=== PATIENT | female | born 2000 | race Caucasian/White ===

== ENCOUNTER 2025-03-10 18:41 | Emergency (ER) | payer BC, SELFPAY ==
--- OUTSIDE RECORDS SUMMARY | 2025-01-24 18:45 | XMS_ITS | Encounter Summary ---
Author Organization [facility] Address [address] [place] [id number] Care Team Providers Care Photoengraver Name Role Phone Amber Ryan MD Primary Care Provider Reason for Visit * Reason Comments Pain Encounter Details Date Type Department Care Team (Late st Contact Info) Description 01/24/2025 7:45 PM EDT Office Visit [facility] [place] [address] Melony Ramirez, PA-C [address] [place] [address] Acute pain of right shoulder (Primary Dx); Strain of right shoulder, initial encounter; Strain of right trapezius muscle, subsequent encounter Social History Tobacco Use Types Packs/Day Years Used Date Smoking Tobacco: Never Smokeless Tobacco: Never Alcohol Use Standard Drinks/Week Comments Never 0 (1 standard drink = 0.6 oz pur e alcohol) PHQ-2 Answer Date Recorded PHQ-2 Total Score 1 11/07/2024 Sexually Active Control Partners Comments Never not sexuallly a ctive yet Comments No Sex and Gender Information Value Date Recorded Sex Assigned at Not on file Legal Sex Female 4:55 PM EDT Gender Identity Not on file Sexual Orientation Not on file documented as of this encounter Functional Status * Is the person deaf or does he/she have serious difficulty hearing? Answer Date of Assessment Author No 02/08/2022 10:58 AM EDT Jumana Whitlock LPN * Is the person blind or does he/she have serious difficulty seeing even when wearing glasses? Answer Date of Assessment Author No 02/08/2022 10:58 AM EDT Jumana Whitlock LPN * Does this person have serious difficulty walking or climbing stairs? Answer Date of Assessment Author No 02/08/2022 10:58 AM EDT Jumana Whitlock LPN * Does this person have difficulty dressing or bathing? Answer Date of Assessment Author No 02/08/2022 10:58 AM EDT Jumana Whitlock LPN * Because of a physical, mental or emotional condition, does this person have difficulty doing errands alone such as visiting a doctor's office or shopping? Answer Date of Assessment Author No 02/08/2022 10:58 AM EDT Jumana Whitlock LPN documented as of this encounter Mental Status * Because of a physical, mental or emotional condition, does this person have serious difficulty concentrating, remembering or making decisions? Answer Entry Date Author No 02/08/2022 10:58 AM EDT Jumana Whitlock LPN documented in this encounter Progress Notes * Melony Ramirez PA-C - 01/24/2025 7:45 PM EDT Images from the original note were not included. Ravi Guillen 2000 Chief Complaint Patient presents with Right Shoulder - Pain [facility] HPI: Patient is a 24-year-old female who presents for evaluation of right shoulder pain. 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 She describedscrew shooting. She seems to be with 1 central point radiating out. Describes it as aching and Throbbing She has pain at rest but also has pain which is worsened when she turns her head to the left. ROS: all other systems reviewed and negative except what is noted in HPI Physical Examination: General: Well-appearing with appropriate affect. No acute distress. Skin: Warm and dry. Color natural. Neurologic: Alert and oriented to person, place and time. Normal neurosensory responce to touch. Pulmonary: Chest expansion appears symmetrical and unlabored. Cardiovascular: No signs of peripheral edema. Lymphatic: No signs of lymphangitis. Gait: Nonantalgic Musculoskeletal: Right shoulder: No deformity. Skin intact. There is tenderness with palp patient at the posterior shoulder along the scapular border upper trapezius. Some tenderness down through the rhomboid musculature as well Pain exacerbated with range of motion of the shoulder though no specific pain with that in the shoulder joint. Negative drop arm. Negative Tristen. Good range of motion just limited on internal rotation. Neurovascular status intact. Impression: Right shoulder/trapezius strain Plan: X-rays of the shoulder obtained this evening are negative. Findings consistent with trapezius muscle strain. Recommend rest ice and [id number] analgesics. Will give referral to shoulder specialist for follow-up. Recommend light duty at work no lift push pull carry more than 5 pounds. X-Ray: Three-view x-ray of the right shoulder shows a congruent joint. No acute fractures. No significant degenerative changes. The supervising/collaborating provider for the technical component of the x-rays is Tony Escobar MD. This chart was completed using voice recognition technology and may contain unintended errors. documented in this encounter Plan of Treatment Upcoming Encounters Date Type Department Care Team (Late st Contact Info) Description 03/21/2025 9:15 AM EST Office Visit [facility] [address] [facility] [address] [place] [address] Virgie Lopez PA-C [address] [place] [address] Scheduled Orders Name Type Priority Associated Diagnoses Orde r Schedule FL SERVICES PROVIDED OFFICE OTH/THN REG SCHED HOURS [place] Charge Routine Acute pain of right shoulder Ordered: 01/24/2025 documented as of this encounter Goals Goal Patient Goal Type Associated Problems Recent Progress Patient-Stated? Author Blood Pressure < 140/90 Blood Pressure 149/77(2024 4:47 AM EST) Melisa Mendoza PA-C Maintain a healthy diet, exercise regularly and maintain an ideal body weight General No Makenna Henao documented as of this encounter Results * XR SHOULDER RIGHT 3 VIEWS (01/24/2025 8:02 PM EDT) Narrative GenericuserCatrachito - 01/24/2025 8:02 PM EDT Please see physician's note from office encounter for x-ray imaging result us Melony Ramirez PA-C IMG DIAGNOSTIC IMAGING OR DERABLES Final Result documented in this encounter Visit Diagnoses Diagnosis Acute pain of right shoulder- Primary Strain of right shoulder, initial encounter Strain of right trapezius muscle, subsequent encounter Acute pain of right shoulder documented in this encounter Additional Health Concerns Assessment Noted Time PHQ-9 Depression Total Score: 1 11/08/19 25 8:52 AM EDT PHQ-2 Depression Total Score: 1 11/08/19 25 8:52 AM EDT documented as of this encounter Care Teams Photoengraver Relationship Specialty Start Date End Date Amber Ryan MD [address] [place] [address] PCP - General Family Medicine 08/08/17 documented as of this encounter
--- OUTSIDE RECORDS SUMMARY | 2025-01-24 19:00 | XMS_ITS | Encounter Summary ---
Author Organization [facility] Address [address] [place] [address] Care Team Providers Care Medical Management Trainer Name Role Phone Amber Ryan MD Primary Care Provider [phone] Encounter Details Date Type Department Care Team (Late st Contact Info) Description 01/24/2025 8:00 PM EDT Ancillary Procedure [address] [address] Melony Ramirez, PASeverianoC [address] [place] [address] Acute pain of right shoulder Social History Tobacco Use Types Packs/Day Years [...] Jumana Whitlock LPN documented in this encounter Plan of Treatment Upcoming Encounters Date Type Department Care Team (Late st Contact Info) Description 03/21/2025 9:15 AM EST Office Visit [facility] [address] [address] Virgie Lopez PA-C [address] [place] [address] documented as of this encounter Goals Goal Patient Goal Type Associated Problems Recent Progress Patient-Stated? Author Blood Pressure < 140/90 Blood Pressure 149/77(2024 4:47 AM EST) Melisa Mendoza PA-C Maintain a healthy diet, exercise regularly and maintain an ideal body weight General No Makenna Henao documented as of this encounter Procedures Procedure Name Priority Date/Time Associated Diagnosis Comments XR SHOULDER RIGHT 3 VIEWS Routine 01/24/2025 8:02 PM EDT Acute pain of right shoulder documented in this encounter Results * XR SHOULDER RIGHT 3 VIEWS (01/24/2025 8:02 PM EDT) Narrative Cartachito Marques - 01/24/2025 8:02 PM EDT Please see physician's note from office encounter for x-ray imaging result Melony Ramirez PA-C [facility] DIAGNOSTIC IMAGING OR DERABLES Final Result documented in this encounter Visit Diagnoses Diagnosis Acute pain of right shoulder documented in this encounter Additional Health Concerns Assessment Noted Time PHQ-9 Depression Total Score: 1 11/08/19 8:52 AM EDT PHQ-2 Depression Total Score: 1 11/08/19 8:52 AM EDT documented as of this encounter Care Teams Medical Management Trainer Relationship Specialty Start Date End Date Amber Ryan MD [address] [place] [address] PCP - General Family Medicine 08/08/17 documented as of this encounter
--- OUTSIDE RECORDS SUMMARY | 2025-01-28 09:00 | XMS_ITS | Encounter Summary ---
Author Organization [facility] Address [address] [place] [address] Care Team Providers Care Electrician Research Name Role Phone Amber Ryan MD Primary Care Provider [phone] Reason for Referral * Physical Therapy (Routine) - Authorized Specialty Diagnoses / Procedures Referred By Suresh powers Referred To Contact Physical Therapy Diagnoses Strain of right trapezius muscle, subsequent encounter Periscapular pain Strain of neck muscle, initial encounter Bobby Leigh DO [address] [place] [address] Phone: tel: fax: [facility] [address] [place] [address] Phone: tel: fax: Referral ID Status Reason Start Date Expiration Date V isits Requested Visits Authorized [id number] Authorized 01/28/2025 04/05/2025 1 8 Question Answer Evaluate and Treat Yes Select as appropriate Evaluate and treat appropriately Modalities/Procedures As Indicated Therapeutic Exercise As Indicated Goals: Decrease pain and swelling, Increase ROM, Increase function, Increase strength Additional instructions: Frequency and duration per therapist discretion, Teach HEP Reason for Visit * Reason Comments Pain Encounter Details Date Type Department Care Team (Late st Contact Info) Description 01/28/2025 10:00 AM EDT Office Visit [facility] [address] [place] [address] Bobby Leigh DO [address] [place] [address] Strain of right trapezius muscle, subsequent encounter (Primary Dx); Periscapular pain; Strain of neck muscle, initial encounter Social History Tobacco Use Types Packs/Day [...] Jumana Whitlock LPN documented in this encounter Ordered Prescriptions Prescription Sig Dispense Quantity Refills Last Filled Start Date End Date predniSONE (DELTASONE) 10 mg Oral TabletIndications:S train of right trapezius muscle, subsequent encounter,Periscapu lar pain,Strain of neck muscle, initial encounter Take 40mg x 3 days, 20mg x 3 days, 10mg x 3 days. 21 Tablet 01/28/2025 documented in this encounter Progress Notes * Bobby Leigh, - 01/28/2025 10:00 AM EDT Images from the original note were not included. Subjective: Patient ID: Ravi Guillen comes in today complaining of Chief Complaint Patient presents with Right Shoulder - Pain This is a 24 y.o. female. 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 The pain began after pulling and popping something in the right shoulder blade area. The pain radiates across the entire back and is associated with pain over the medial part of the scapula on the right side and across to the scapula on the left side. Movement of the neck exacerbates the pain, causing discomfort in the upper trapezius and upper thoracic regions. The patient was previously seen at urgent care, where she was advised to be on light duty and avoid work until further notice. She reports being able to work as long as lifting or pulling is limited. REVIEW OF SYSTEMS: Musculoskeletal: Pain in the right shoulder blade area radiating across the back, pain over the medial scapula on the right side, and pain across to the scapula on the left side. Neurologic: Pain exacerbated by neck movement. PHYSICAL EXAM: - Forward elevation: 170 degrees bilaterally. - External rotation: 45 degrees bilaterally. - Internal rotation: T9 bilaterally. - Strength: 5/5 in supraspinatus, infraspinatus, subscapularis, and internal rotation. - Movement of the neck causes pain into the upper trapezius region and upper thoracic region. IMAGING: X-rays, three views, right shoulder, dated 01/24/2025, performed at [facility], demonstrate no glenohumeral arthritis, no AC arthritis, no superior humeral head migration. Glenohumeral registry appears well-maintained, although difficult to appreciate on the axillary view. Slightly curved acromion noted. ASSESSMENT: - Trap strain, cervical strain, periscapular pain. PLAN: The patient will be prescribed a steroid pack to reduce inflammation and pain. Formal physical therapy will be initiated to focus on pulling the shoulder blades back and correcting posture. Restrictions will be placed on lifting, limiting it to 10 pounds with the affected arm, and avoiding overheadactivities. The patient will return for follow-up in approximately three weeks to reassess progressand symptoms. Diagnoses and all orders for this visit: Strain of right trapezius muscle, subsequent encounter - AMB REFERRAL TO PHYSICAL THERAPY - predniSONE (DELTASONE) 10 mg Oral Tablet; Take 40mg x 3 days, 20mg x 3 days, 10mg x 3 days. Dispense: 21 Tablet; Refill: 0 Periscapular pain - AMB REFERRAL TO PHYSICAL THERAPY - predniSONE (DELTASONE) 10 mg Oral Tablet; Take 40mg x 3 days, 20mg x 3 days, 10mg x 3 days. Dispense: 21 Tablet; Refill: 0 Strain of neck muscle, initial encounter - AMB REFERRAL TO PHYSICAL THERAPY - predniSONE (DELTASONE) 10 mg Oral Tablet; Take 40mg x 3 days, 20mg x 3 days, 10mg x 3 days. Dispense: 21 Tablet; Refill: 0 Bobby Leigh, Orthopedic Surgeon- [facility] Please note that this health promoter was created using voice recognition software. Any errors are unintentional and may be due to voice recognition health promoter. The provider informed the patient (or legal provider relations representative) on the use of the ambient listening artificial intelligence tool, SOHMribe to obtain consent to its use. It was explained that this AI tool processes the conversation to generate a clinical note with the expected benefit of improved accuracy with a goal of improving the encounter experience for the patient and provider.?The provider explained that the medical information captured by the AI tool would be protected by applicable privacy laws. The patient was given an opportunity to ask questions and opt out of proceeding with the use ofthe AI tool. After being informed of such information, the patient (or legal provider relations representative), and each individual in attendance with the patient, consented to the use of the AI tool. documented in this encounter Plan of Treatment Upcoming Encounters Date Type Department Care Team (Late st Contact Info) Description 03/21/2025 9:15 AM EST Office Visit [facility] [address] [place] [address] Virgie Lopez PA-C [address] [place] [address] Scheduled Referrals Name Type Priority Associated Diagnoses Orde r Schedule AMB REFERRAL TO PHYSICAL THERAPY Outpatient Referral Routine Strain of right trapezius muscle, subsequent encounter Periscapular pain Strain of neck muscle, initial encounter Ordered: 01/28/2025 documented as of this encounter Goals Goal Patient Goal Type Associated Problems Recent Progress Patient-Stated? Author Blood Pressure < 140/90 Blood Pressure 149/77(2024 4:47 AM EST) Melisa Mendoza PA-C Maintain a healthy diet, exercise regularly and maintain an ideal body weight General No Makenna Henao documented as of this encounter Visit Diagnoses Diagnosis Strain of right trapezius muscle, subsequent encounter- Primary Periscapular pain Pain in joint, shoulder region Strain of neck muscle, initial encounter documented in this encounter Additional Health Concerns Assessment Noted Time PHQ-9 Depression Total Score: 1 11/08/19 25 8:52 AM EDT PHQ-2 Depression Total Score: 1 11/08/19 25 8:52 AM EDT documented as of this encounter Care Teams Electrician Research Relationship Specialty Start Date End Date Amber Ryan MD [address] [place] [address] PCP - General Family Medicine 08/08/17 documented as of this encounter
--- OUTSIDE RECORDS SUMMARY | 2025-02-13 07:00 | XMS_ITS | Encounter Summary ---
Author Organization [facility] Address [address] [place] [address] Care Team Providers Care Catalyst Plant Supervisor Name Role Phone Amber Ryan MD Primary Care Provider [phone] Reason for Visit * Physical Therapy (Routine) - Authorized Specialty Diagnoses / Procedures Referred By Suresh powers Referred To Contact Physical Therapy Diagnoses Strain of right trapezius muscle, subsequent encounter Periscapular pain Strain of neck muscle, initial encounter Bobby Leigh DO [address] [place] [address] Phone: tel: fax: [facility] [address] [place] [address] Phone: tel: fax: Referral ID Status Reason Start Date Expiration Date V isits Requested Visits Authorized [id number] Authorized 01/28/2025 04/05/2025 1 8 Encounter Details Date Type Department Care Team (Late st Contact Info) Description 02/13/2025 8:00 AM EDT Office Visit [facility] [address] [place] [address] Tarah Morales, PT [address] [place] [address] Strain of trapezius muscle, right, subsequent encounter (Primary Dx); Periscapular pain; Strain [...] documented in this encounter Progress Notes * Tarah Morales, PT - 02/13/2025 8:00 AM EDT Physical Therapy Evaluation 02/13/2025 Ravi Guillen : 2000 Referring Provider: Bobby Leigh DO Next MD visit: 02/18/25 Encounter Diagnoses Name Primary? Strain of trapezius muscle, right, subsequent encounter Yes Periscapular pain Strain of neck muscle, initial encounter Surgery Date: NA Onset date: 01/24/25 Contraindications/Precautions: universal Visit: 05/09 Time In: 8:00AM Time Out: 8:48AM Subjective: Ravi Guillen is a 24 y.o. female referred by Bobby Leigh DO to outpatient Physical Therapy with a primary diagnosis of: Encounter Diagnoses Name Primary? 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 She had immediate painand came to the [facility] to get looked at. She reports that the pain radiated across her upper back and posterior neck at first but now is centered in the middle of the back of her neck.She states that it is achy at rest and gets worse with certain movements or activities. She is still working but is having other people help her with patient transfers. Functional Deficits Since Injury: Pain/difficulty with forward flexed postures, sewing, sitting andcharting at work, laying down to go to sleep (hard to find comfortable position), work activities (having to have someone help with patient transfers) Diagnostic Tests: X-rays Three-view x-ray of the right shoulder shows a congruent joint. No acute fractures. No significant degenerative changes. Relevant Past Medical/Surgical History: see patient chart Current medications and allergies were reviewed with the patient. 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 Patient stated goals: reduce neck pain and return to PLOF Pain at highest: 8 Pain at lowest: 2 (5 current) Location: central posterior neck Description: Pain is described as aching. What Increases Pain?: Pain/difficulty with forward flexed postures, sewing, sitting and charting atwork, laying down to go to sleep (hard to find comfortable position), work activities (having to have someone help with patient transfers) What Decreases Pain?: heat and ice, some stretches she found online Objective Posture :Forward head, inc thoracic kyphosis Joint Mobility: segmental hypomobility to CPA in lower c-spine with local discomfort Palpation: B UT Gait: Sensation: Patient denies numbness/tingling Flexibility: Functional Mobility Screening: Other: Cervical Date: Date: Date: Date: PROM Left Right Left Right Lateral Flexion Cervical Rotation Cervical Flexion Cervical Extension Date: 02/13/2025 Date: 02/13/2025 Date: Date: AROM Left Right Left Right Lateral Flexion 45 45 Cervical Rotation 62 - central neck pain 78 Cervical Flexion 47 - stretching all the way down upper back Cervical Extension 50 - pressure center of neck Shoulder Flexion WNL WNL Shoulder Abduction WNL WNL Shoulder ER WNL WNL Shoulder IR WNL WNL Date: 02/13/2025 Date: 02/13/2025 Date: Date: Strength Left Right Left Right Shoulder Flexion 4+/5 4+/5 Shoulder Abduction (C5) 4+/5 4+/5 Shoulder ER 4+/5 4+/5 Shoulder IR 4+/5 4+/5 Elbow Flexion (C6) 4+/5 4+/5 Wrist Flexion (C7) 4+/5 4+/5 Wrist Extension (C6) 4+/5 4+/5 Elbow Extension (C7) 4+/5 4+/5 Hand Intrinsics (T1) 4+/5 4+/5 Thumb Extension (C8) 4+/5 4+/5 Dermatomes: Date: Date: Date: Date: DTR???s Left Right Left Right Biceps Brachioradialis Triceps Special Tests: None Functional Assessment: 05/31/2022 11:00 AM 09/08/2023 4:00 PM 02/13/2025 9:00 AM Rehab Outcomes LEFS Total 45 LEFS Max Function 56.25 % DHI Total 22 UEFS Score 50 UEFS Maximal Function Score 62.5 Treatment central lower cervical pain *LATEX ALLERGY* Treatment Date 02/13/2025 Date Date Date Visit 1 UBE NV Sidelying open book NV Cervical extension SNAG x15 L cervical rotation SNAG x15 Shoulder flexion slide + lower trap lift off x15 No Money OTB (latex free) x15 TB row/ext NV Manual Prone over blue cushion: CPA and B UPA lower c-spine, STM B UT/LS Supine: cervical manual traction 8' total Education see below 5' Modalities Measurements Charges Reza HEP ID: [id number] Education 02/13/2025: Patient is educated on PT diagnosis, prognosis, PT POC Treatment today included: Timed Units: Therapeutic exercise: 18 minutes Manual therapy: 8 minutes Total Time for Timed Treatments: 26 minutes Untimed Units: PT Eval Low Patient's Tolerance of Evaluation and/or Treatment: Good Response to HEP instruction/patient education: The patient verbalized understanding and demonstrated independence with home exercise program. Impression: Patient presents with signs and symptoms consistent with Encounter Diagnoses Name Primary? Strain of trapezius muscle, right, subsequent encounter Yes Periscapular pain Strain of neck muscle, initial encounter . Impairments (physical, cognitive and/or psychosocial): decreased mobility and pain/tenderness Performance Deficits: functional mobility, work/education, sleeping/rest, and recreational activities Based on the functional impairments as stated and activity limitations above, Ravi presents as a good candidate for skilled intervention by a licensed therapist. Prognosis for Ravi based on the above objective findings is good . Goals Short-Term Goals set for 4 weeks. - Patient to be independent and compliant with HEP. - Patient to demonstrate cervical AROM improvements to 75+ L cervical rotation in order to return to PLOF for all functional activities. - Patient to report 0/10 resting neck pain as a measure of reduced tissue irritation. Long-Term Goals set for 8 weeks. - Patient to be able to perform full work duties for 12 hour shift with < or = 2/10 neck pain. - Patient to report no sleep disturbances secondary to neck pain. - Patient to improve UEFS score to 75%. Plan Patient will be seen 1-2 times per week for 8 weeks. Treatment to include therapeutic exercise, neuromuscular reeducation, manual therapy, therapeutic activity, mechanical traction, vasopneumatic pump, electrical stimulation, dry needling, cupping, andhot pack/cold pack. Signature: Tarah Morales PT Date: 02/13/2025 [place] License: [id number] documented in this encounter Plan of Treatment Upcoming Encounters Date Type Department Care Team (Late st Contact Info) Description 03/21/2025 9:15 AM EST Office Visit [facility] [address] [place] [address] Virgie Lopez PA-C [address] [place] [address] Scheduled Referrals Name Type Priority Associated Diagnoses [...] this encounter Visit Diagnoses Diagnosis Strain of trapezius muscle, right, subsequent encounter- Primary Periscapular pain Pain in joint, shoulder region Strain of neck muscle, initial encounter documented in this encounter Additional Health Concerns Assessment Noted Time PHQ-9 Depression Total Score: 1 11/08/19 25 8:52 AM EDT PHQ-2 Depression Total Score: 1 11/08/19 25 8:52 AM EDT documented as of this encounter Care Teams Catalyst Plant Supervisor Relationship Specialty Start Date End Date Amber Ryan MD [address] [place] [address] PCP - General Family Medicine 08/08/17 documented as of this encounter
--- OUTSIDE RECORDS SUMMARY | 2025-02-13 08:15 | XMS_ITS | Encounter Summary ---
Author Organization [facility] Address [address] [place] [address] Care Team Providers Care Processing Technician Name Role Phone Amber Ryan MD Primary Care Provider [phone] Reason for Visit * Reason Comments Follow-up Follow-up Encounter Details Date Type Department Care Team (Late st Contact Info) Description 02/13/2025 9:15 AM EDT Office Visit [facility] [address] [place] [address] Socrates Jimenez MD [address] [place] [address] Carpal tunnel syndrome of right wrist (Primary Dx); Carpal tunnel syndrome of left wrist Social History Tobacco Use Types Packs/Day Years [...] Entry Date Author No 02/08/2022 10:58 AM Jumana Cardona LPN documented in this encounter Progress Notes * Socrates Jimenez MD - 02/13/2025 9:15 AM EDT Images from the original note were not included. Subjective: 02/13/2025 Ravi Guillen 24 y.o. female. HPI: History of Present Illness The patient returns for evaluation of bilateral carpal tunnel complaints. She saw Dr. Rainey on 01/02/2025 for ultrasound evaluation plus injections. Overall injections have helped. She reports that her left hand is causing more discomfort than the right. She received injections in both hands on 01/02/2025, which provided relief for about a week. However, two weeks post-injection, she began to experience tingling sensations upon waking up. This sensation does not disturb her sleep and can be alleviated by shaking her hand. She also notes that the tip of one finger is tingling. She is right-hand dominant and sleeps on her left side. She experiences numbness and tingling in two fingers of her right hand, but these symptoms do not disrupt her sleep. She no longer uses braces at night. Prior to the injections, her left hand would wake her up, but this has not been the case since the treatment. Both hands feel numb upon waking, and she occasionally experiences numbness inher right hand while driving. Objective: PHYSICAL EXAMINATION: General: Well appearing with appropriate affect. No acute distress. Head/neck: Normocephalic. Range of motion of the neck: Easy without discomfort. Skin: Skin warm and dry. Color natural. Neuro: Alert and oriented to person, place, and time. Normal neurosensory response to touch. Pulmonary: Chest expansion appears symmetric and unlabored. Cardiovascular: No signs of peripheral edema. Lymphatic: No signs of lymphangitis. Musculoskeletal: Physical Exam Right CTS-6 Points Present Median Distribution 3.5 None Atrophy 5 Present Night time sympt. 4 + Tinels sign 4 + Compression Test - + Phalens test 5 def 2PD >5 4.5 none Opposition Weakness - Left CTS-6 Points Present Median Distribution 3.5 None Atrophy 5 Present Night time sympt. 4 -- Tinels sign 4 -- Compression Test - -- Phalens test 5 def 2PD >5 4.5 none Opposition Weakness - Assessment and Plan: Assessment & Plan 1. Carpal tunnel syndrome, bilateral: - Tingling and numbness present in both hands, left hand more symptomatic - Injections on 01/02/2025 provided relief, symptoms have returned, however, not nearly as bad as they were prior to injections. She is not having any nocturnal complaints at this point in time. At this point time would be more aggressive with the bracing. I would see how we progress with the bracing. If her symptoms were to return, worsen would consider endoscopic carpal tunnel release. If she wears the braces, her nocturnal symptoms do not occur. - Consider surgery if symptoms persist despite wearing the brace - Discussed potential for endoscopic versus open carpal tunnel release - She will call if she wants to proceed with carpal tunnel release - We discussed surgery endoscopic versus open carpal tunnel release. We discussed the risks associated with this. She is aware of these. I would allow her to call if symptoms persist. Radiology/Laboratory Results: Results Ultrasound Results: Date of Exam: 01/02/2025 Dr. Rainey Median nerve CSA at the carpal tunnel inlet: Right: 0.13 cm?? Left: 0.10 cm?? CSA = Cross Sectional Area Please note that this corporate associate was created using voice recognition software. Any errors are unintentional and may be due to voice recognition corporate associate. The provider informed the patient (or legal operations representative) on the use of the ambient listening artificial intelligence tool, [employer] to obtain consent to its use. It [...] opt out of proceeding with the use of the AI tool. After being informed of such information, the patient (or legal operations representative), and each individual in attendance with the patient, consented to the use of the AI tool. Socrates Jimenez MD documented in this encounter Plan of Treatment Upcoming Encounters Date Type Department Care Team (Late st Contact Info) Description 03/21/2025 9:15 AM EST Office Visit [facility] [address] [address] Virgie Lopez PA-C [address] [place] [address] documented as of this encounter Goals Goal Patient Goal Type Associated Problems Recent Progress Patient-Stated? Author Blood Pressure < 140/90 Blood Pressure 149/77(2024 4:47 AM EST) Melisa Mendoza PA-C Maintain a healthy diet, exercise regularly and maintain an ideal body weight General Makenna Momin documented as of this encounter Visit Diagnoses Diagnosis Carpal tunnel syndrome of right wrist- Primary Carpal tunnel syndrome Carpal tunnel syndrome of left wrist Carpal tunnel syndrome documented in this encounter Additional Health Concerns Assessment Noted Time PHQ-9 Depression Total Score: 1 11/08/19 25 8:52 AM EDT PHQ-2 Depression Total Score: 1 11/08/19 25 8:52 AM EDT documented as of this encounter Care Teams Processing Technician Relationship Specialty Start Date End Date Amber Ryan MD [address] [place] [address] PCP - General Family Medicine 08/08/17 documented as of this encounter
--- OUTSIDE RECORDS SUMMARY | 2025-02-18 09:45 | XMS_ITS | Encounter Summary ---
Author Organization [facility] Address [address] [place] [address] Care Team Providers Care Departmental Buyer Name Role Phone Amber Ryan MD Primary Care Provider [phone] Reason for Visit * Reason Comments Follow-up Encounter Details Date Type Department Care Team (Late st Contact Info) Description 02/18/2025 10:45 AM EDT Office Visit [facility] [address] [address] Virgie Lopez PA-C [address] [place] [address] Strain of right trapezius muscle, subsequent encounter [...] documented in this encounter Progress Notes * Virgie Lopez PA-C - 02/18/2025 10:45 AM EDT Images from the original note were not included. Chief Complaint Patient presents with ??? Right Shoulder - Follow-up History: Ravi Guillen is here today for repeat evaluation after sustained injury on January 2025, approximately 3 weeks ago. 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 Current treatment: PT 1x last week; HEP daily Patient reports pain has improved/decreased. Concerns: none Physical Exam, right Shoulder, injured: Patient is sitting with protracted shoulder position No scapular winging No scapular dyskinesia Non tender to palpation: AC joint, Biceps tendon, Spine of the Scapula, and rhomboids AROM: Forward Flexion 170, ER 60, IR T11 Strength: Forward Flexion: 4.75/5, ER: 5/5, IR: 5/5, Belly Press: 5/5, and Yergason's: 5/5 Neurovascularly intact. left Shoulder, uninjured: AROM: Forward Flexion 170, ER 60, IR T11 Strength: Forward Flexion: 4.75/5, ER: 5/5, IR: 5/5, Belly Press: 5/5, and Yergason's: 5/5 Assessment: Encounter Diagnoses Name Primary? Strain of right trapezius muscle, subsequent encounter Yes ??? Periscapular pain ??? Strain of neck muscle, initial encounter Plan: Reviewed with the patient continued treatment recommendations. She was encouraged to continue with formal physical therapy since she just started last week. I think will be beneficial for her to improve her range of motion and strength and work on her posture by continue with physical therapy once a week for the next 3 to 4 weeks. We will return her to work with full return. She was given a work note. Will do a final check with the patient in 4 to 5 weeks for repeat evaluation. Patient was well-educated and all of her questions were answered. DME: DME Summary No orders found for display Virgie Lopez PA-C This chart was completed using voice recognition technology and may contain unintended errors. documented in this encounter Plan of Treatment Upcoming Encounters Date Type Department Care Team (Late st Contact Info) Description 03/21/2025 9:15 AM EST Office Visit [facility] [address] [place] [address] Virgie Lopez PA-C [address] [place] [address] documented as of this encounter Goals Goal Patient Goal Type Associated Problems Recent Progress Patient-Stated? Author Blood Pressure < 140/90 Blood Pressure 149/77(2024 4:47 AM EST) No Melisa Hsu PA-C Maintain a healthy diet, exercise regularly and maintain an ideal body weight General No Makenna Henao documented as of this encounter Visit Diagnoses Diagnosis Strain of right trapezius muscle, subsequent encounter- Primary Periscapular pain Pain in joint, shoulder region Strain of neck muscle, initial encounter documented in this encounter Additional Health Concerns Assessment Noted Time PHQ-9 Depression Total Score: 11/08/19 8:52 AM EDT PHQ-2 Depression Total Score: 11/08/19 8:52 AM EDT documented as of this encounter Care Teams Departmental Buyer Relationship Specialty Start Date End Date Amber Ryan MD [address] [place] [address] PCP - General Family Medicine 08/08/17 documented as of this encounter
--- OUTSIDE RECORDS SUMMARY | 2025-02-20 06:30 | XMS_ITS | Encounter Summary ---
Author Organization [facility] Address [address] [place] [address] Care Team Providers Care Dock Hand Name Role Phone Amber Ryan MD Primary Care Provider [phone] Reason for Visit * Physical Therapy (Routine) - Authorized Specialty Diagnoses / Procedures Referred By Suresh powers Referred To Contact Physical Therapy Diagnoses Strain of right trapezius muscle, subsequent encounter Periscapular pain Strain of neck muscle, initial encounter Bobby Leigh DO [address] [place] [address] Phone: tel: fax: [facility] [address] [place] [address] Phone: tel: fax: Referral ID Status Reason Start Date Expiration Date V isits Requested Visits Authorized [id number] Authorized 01/28/2025 04/05/2025 1 8 Encounter Details Date Type Department Care Team (Late st Contact Info) Description 02/20/2025 7:30 AM EDT Office Visit [facility] [address] [place] [address] Tarah Morales, PT [address] [place] [address] Strain of trapezius muscle, right, subsequent encounter [...] of Assessment Author No 02/08/2022 10:58 AM EBERT Jumana Whitlock LPN documented as of this encounter Mental Status * Because of a physical, mental or emotional condition, does this person have serious difficulty concentrating, remembering or making decisions? Answer Entry Date Author No 02/08/2022 10:58 AM EBERT Jumana Whitlock LPN documented in this encounter Progress Notes * Yari Guallpa PTA - 02/20/2025 7:30 AM EDT Images from the original note were not included. Physical Therapy Daily Progress Note 02/20/2025 Ravi Guillen : 2000 Referring Provider: Bobby Leigh DO Next MD visit: 02/18/25 Encounter Diagnoses Name Primary? Strain of trapezius muscle, right, subsequent encounter Yes Periscapular pain Strain of neck muscle, initial encounter Surgery Date: NA Onset date: 01/24/25 Contraindications/Precautions: universal Visit: Time In: 7:36 am Time Out: 8:10 am Subjective: Patient states she is doing okay overall. Reports she is feeling a bit sore today. See previous objective. Treatment central lower cervical pain *LATEX ALLERGY* Treatment Date 02/13/2025 Date:02/20/2025 Date Date Visit 1 2 UBE NV 3'/3' Sidelying open book NV x15 3 (laying on R) Cervical extension SNAG x15 x15 L cervical rotation SNAG x15 x15 Shoulder flexion slide + lower trap lift off x15 x20 No Money OTB (latex free) x15 OTB (latex free) x20 TB row/ext NV 2x30 ea OTB (wipe handles) Manual Prone over blue cushion: CPA and B UPA lower c-spine, STM B UT/LS Supine: cervical manual traction 8' total Prone over blue cushion: CPA and B UPA lower c-spine, STM B UT/LS Supine: cervical manual traction, SOR, L UT stretch 10' total Education see below 5' Modalities Measurements Charges Eval-TE-man TE-man HEP ID: [id number] Education 02/13/2025: Patient is educated on PT diagnosis, prognosis, PT POC Treatment today included: Timed Units: Therapeutic exercise: 24 minutes Manual therapy: 10 minutes Total Time for Timed Treatments: 34 minutes Untimed Units: None Patient's Tolerance of Evaluation and/or Treatment: Good Response to HEP instruction/patient education: The patient verbalized understanding and demonstrated independence with home exercise program. Assessment: Patient tolerated treatment well with no increase in soreness or symptoms. Patient responded well to manual therapy. Will continue to address pain, strength, ROM, and functional independence with skilled therapy services. Plan: Continue current plan of care. Signature: Yari Guallpa PTA Date: 02/20/2025 [place] License: [id number] documented in this encounter Plan of Treatment Upcoming Encounters Date Type Department Care Team (Late st Contact Info) Description 03/21/2025 9:15 AM EST Office Visit [facility] [address] [place] [address] Virgie Lopez PA-C [address] [place] [address] documented as of this encounter Goals Goal [...] documented as of this encounter Care Teams Dock Hand Relationship Specialty Start Date End Date Amber Ryan MD [address] [place] [address] PCP - General Family Medicine 08/08/17 documented as of this encounter
--- OUTSIDE RECORDS SUMMARY | 2025-03-10 02:02 | XMS_ITS | Encounter Summary ---
Author Organization [place] [address] Care Team Providers Care Retail Key Holder Name Role Phone Amber Ryan MD Primary Care Provider [phone] Reason for Visit * Reason Comments Headache PEREZ, dizziness, nause ous Encounter Details Date Type Department Care Team (Late Contact Info) Description 03/10/2025 2:02 AM EST - 03/10/2025 4:56 AM [facility] Emergency [facility] Emergency [address] [place] [address]. [place] [address] Delfino Head MD [address] [place] [address] Viral syndrome (Primary Dx); Acute nonintractable headache, unspecified headache type Discharge Disposition: Home or Self Care Social History Tobacco Use Types Packs/Day Years [...] on file documented as of this encounter Last Filed Vital Signs Vital Sign Reading Time Taken Comments Blood Pressure 149/77 03/10/2025 4:47 AM EST Pulse 105 03/10/2025 1:51 AM EDT Temperature 37.1 C (98.7 F) 03/10/2025 1:51 AM EDT Respiratory Rate 16 03/10/2025 1:51 AM EDT Oxygen Saturation 94% 03/10/2025 4:30 AM EST Inhaled Oxygen Concentration - - Weight - - Height - - Body Mass Index - - documented in this encounter Functional Status * Is the [...] 10:58 AM EDT Jumana Whitlock LPN * Suicide Severity Rating Answer Date of Assessment Author No Risk 03/10/2025 1:51 AM EDT Allen Thayer RN * [place] Suicide Severity Rating Scale (Q shift for moderate and high) Question Answer Date of Assessment Author 1. In the past month, have y ou wished you were or wished you could go to sleep and not wake up? 0 03/10/2025 1:51 AM EDT Justina Thayer RN 2. In the past month, have y ou actually had any thoughts of killing yourself? (If no, skip to question 6) 0 03/10/2025 1:51 AM EDT Justina Thayer RN 6. Have you ever done anythi ng, started to do anything, or prepared to do anything to end your life? 0 03/10/2025 1:51 AM EDT Justina Thayer RN documented as of this encounter Mental Status * Because of a physical, mental or emotional condition, does this person have serious difficulty concentrating, remembering or making decisions? Answer Entry Date Author No 02/08/2022 10:58 AM EDT Jumana Whitlock LPN documented in this encounter Discharge Instructions * Discharge Instructions* Delfino Head MD - 03/10/2025 4:29 AM EST You have been diagnosed with a febrile illness. You should not return to school or work until afebrile for 24 hours without fever reducing medication. Tylenol and ibuprofen can be used in combination for fever management unless there is an allergy toone of these medications. It is safe and appropriate to use both medications at the same time for fever management. * Attachments The following attachments cannot be sent through Care Everywhere. * Headaches in adults (Georgian) * Cough, runny nose, and colds ([place]ian) documented in this encounter Medications at Time of Discharge busPIRone (BUSPAR) 10 mg Oral TabletIndications :Mixed anxiety and depressive disorder TAKE 1/2 TO 1 TABLET BY MOUTH TWICE DAILY NEEDED 30 Tablet 2 03/08/2025 cetirizine (ZYRTEC) 5 mg Oral Tablet FLUoxetine (PROZAC) 20 mg Oral CapsuleIndication s:Mixed anxiety and depressive disorder Take 1 Capsule by mouth daily. 90 Capsule 1 02/28/2025 FLUoxetine (PROZAC) 20 mg Oral CapsuleIndication s:Mixed anxiety and depressive disorder TAKE 1 CAPSULE BY MOUTH DAILY 100 Capsule 02/13/2025 levonorgestrel 20 mcg/24 hours (8 yrs) 52 mg IU IUD 1 Each by Intrauterine route once. 02/26/2022 lisinopriL (PRINIVIL;ZESTRIL ) 5 mg Oral TabletIndications :Essential hypertension TAKE 1 TABLET BY MOUTH DAILY 90 Tablet 1 01/17/2025 nabumetone (RELAFEN) 750 mg Oral TabletIndications :Sciatica, right side,Spondylolist hesis of lumbosacral region,Lumbar sprain, initial encounter,Radicul opathy of lumbar region,Sacroiliit is,Lumbar pain Take 1 Tablet by mouth 2 times daily. 60 Tablet 1 10/06/2023 predniSONE (DELTASONE) 10 mg Oral TabletIndications :Strain of right trapezius muscle, subsequent encounter,Perisca pular pain,Strain of neck muscle, initial encounter Take 40mg x 3 days, 20mg x 3 days, 10mg x 3 days. 21 Tablet 01/28/2025 tiZANidine (ZANAFLEX) 2 mg Oral Tablet documented as of this encounter Discharge Disposition Disposition Code Departure Means Destination Comment s Home or Self Nursing Home documented in this encounter ED Notes * Delfino Head MD - 03/10/2025 1:51 AM EDT Chief Complaint Patient presents with Headache PEREZ, dizziness, nauseous HPI Chief Complaint - Headache described as pulsating in my temples that started Th evening into Tuesday, ongoing for over 24 hours - Fever of 102??F last night with associated chills - Nausea and vomiting History of Present Illness Ravi is a 24-year-old female who presents with a chief complaint of headache that began Th evening and has persisted for over 24 hours. The patient reports going to bed feeling fine Th night but waking up Tuesday morning with a pulsating headache in her temples. She describes this headache as different from her occasional headaches, stating it has never been like this before. The patient developed a fever of 102??F Tuesday night and experienced chills associated with the fever. She took Tylenol at 7:30 PM Tuesday for the fever, which was over 6 hours prior to the current visit. She also tried Tylenol on Tuesday for the headache, but it did not provide relief. The patient took DayQuil thinking it might be a cold or sinus infection, but her symptoms have been getting worse. Associated symptoms include nausea and vomiting. The patient denies any recent head injury or impact. She denies earache, sore throat, coughing, sneezing, or body aches beyond the chills that occurred with her fever. She has not taken any additional medications to treat the headache aside from the previously mentioned Tylenol and DayQuil. Medical History - History of occasional headaches, but never as severe as current presentation Medications and Supplements - Tylenol - Took for fever at 7:30 PM. Tried on Tuesday but didn't help the headache. - DayQuil - Took because thought it was a cold or sinus infection. History provided by: Patient and medical records Patient History Allergies[1] Home Medications: Prior to Admission medications Medication Sig Start Date End Date Last Dose Authorizing Provider busPIRone (BUSPAR) 10 mg Oral Tablet TAKE 1/2 TO 1 TABLET BY MOUTH TWICE DAILY NEEDED 03/08/25 Melisa Hsu PA-C cetirizine (ZYRTEC) 5 mg Oral Tablet Provider, Historical FLUoxetine (PROZAC) 20 mg Oral Capsule Take 1 Capsule by mouth daily. 02/28/25 Melisa Hsu PA-C FLUoxetine (PROZAC) 20 mg Oral Capsule TAKE 1 CAPSULE BY MOUTH DAILY 02/13/25 Melisa Hsu PA-C levonorgestrel 20 mcg/24 hours (8 yrs) 52 mg IU IUD 1 Each by Intrauterine route once. 02/26/22 Provider, Historical lisinopriL (PRINIVIL;ZESTRIL) 5 mg Oral Tablet TAKE 1 TABLET BY MOUTH DAILY 01/17/25 Melisa Hsu PA-C nabumetone (RELAFEN) 750 mg Oral Tablet Take 1 Tablet by mouth 2 times daily. 10/06/23 Christopher Chance MD predniSONE (DELTASONE) 10 mg Oral Tablet Take 40mg x 3 days, 20mg x 3 days, 10mg x 3 days. 01/28/25 Bobby Leigh DO tiZANidine (ZANAFLEX) 2 mg Oral Tablet Provider, Historical Past Medical History[2] Social History[3] Family History[4] Surgical History[5] Review of Systems All other systems reviewed and are negative. Physical Exam Vitals: 03/10/25150 BP: 140/76 Pulse: 105 Resp: 16 Temp: 98.7 ??F (37.1 ??C) SpO2: 93% Vitals: 11/02/25 0151 BP: 140/76 Pulse: 105 Resp: 16 Temp: 98.7 ??F (37.1 ??C) TempSrc: Oral SpO2: 93% Physical Exam Vitals and nursing note reviewed. Constitutional: General: She is not in acute distress. Appearance: She is overweight. She is not toxic-appearing. HENT: Head: Normocephalic and atraumatic. Mouth/Throat: Mouth: Mucous membranes are moist. Eyes: Extraocular Movements: Extraocular movements intact. Pupils: Pupils are equal, round, and reactive to light. Cardiovascular: Heart sounds: Normal heart sounds. Pulmonary: Effort: Pulmonary effort is normal. Breath sounds: Normal breath sounds. Abdominal: General: Bowel sounds are normal. Palpations: Abdomen is soft. Musculoskeletal: Cervical back: Normal range of motion and neck supple. Lymphadenopathy: Cervical: No cervical adenopathy. Skin: General: Skin is warm and dry. Neurological: Mental Status: She is alert and oriented to person, place, and time. Mental status is at baseline. Psychiatric: Mood and Affect: Mood normal. Behavior: Behavior normal. Behavior is cooperative. Procedures Procedures Radiology/EKG/Labs: Results for orders placed or performed during the hospital encounter of 03/10/25 [id number] A/B Specimen: Nares; Swab Result Value Ref Range CORONAVIRUS [id number] Not Detected Not Detected Influenza A DNA Not Detected Not Detected Influenza B DNA Not Detected Not Detected CT HEAD WO CONTRAST Narrative CT HEAD WO CONTRAST 03/10/2025 4:08 AM CLINICAL HISTORY: -headache. COMPARISON: None. PROCEDURE COMMENTS: Routine noncontrast head CT with multiplanar reconstructions. Dose 1 : CT DLP Total : 810.69 mGycm DLP Spiral Max : 805.31 mGycm Maximum CTDI Vol : 48.28 mGy FINDINGS: Ventricular size and configuration normal. No evidence of acute stroke, mass, or hemorrhage. No evidence of fracture or extra-axial collection. Included paranasal sinuses, mastoids, and orbits unremarkable. Impression No acute intracranial abnormality. - Note: Radiology results need to be interpreted within a comprehensive clinical context. If you have questions about the radiology report, please contact the office of the ordering clinician. Medical Decision Making Medical Decision Making Ravi Angel is a 24-year-old female presenting with severe pulsating temporal headache that began evening and has persisted for over 24 hours, associated with fever of 102??F and nausea. The patient's presentation with headache, fever, and constitutional symptoms raised concern for viral illness including COVID-19 or influenza, both of which can cause severe headaches with fever. Given the fever and headache combination, bacterial meningitis was also considered in the differential diagnosis. CT scan of the brain was performed and showed normal results, ruling out structural abnormalities or intracranial pathology. COVID-19 and influenza testing were both negative, though this does not exclude other viral etiologies as numerous viruses cannot be tested for in the emergency department. No evidence of bacterial infection was identified on examination, and the absence of head traumafurther supported a viral etiology. The normal brain imaging and negative infectious disease testing, combined with the clinical presentation of fever followed by headache, suggests a viral syndrome as the most likely cause of her symptoms. Problem-Based Assessment and Plan Headache with fever Assessment: 24-year-old female presents with severe pulsating temporal headache that began evening and persisted over 24 hours, associated with fever of 102??F Tuesday night and chills. Patient reports this headache is unlike her occasional previous headaches. No recent head trauma. Tried Tylenol and DayQuil without relief. Physical examination revealed normal ear examination. CT scan of brain was normal. COVID and flu tests were negative. No evidence of bacterial infection identified. Most likely etiology is viral illness given fever and headache constellation, though specific viral pathogen not identified as only limited viral testing available. Plan: - Administered Toradol And Inapsine for headache, Patient reports significant improvement - Administered Zofran for nausea - Completed CT scan of brain (normal results) - Completed COVID and flu testing (negative results) - Recommend Tylenol and ibuprofen for symptom management - Recommend increased fluid intake - Treat as viral illness until symptoms resolve - Discharge home with rest recommendations Nausea and vomiting Assessment: Patient experiencing nausea and vomiting associated with headache and fever, likely related to same viral process. Plan: - Administered Zofran for nausea relief Problems Addressed: Acute nonintractable headache, unspecified headache type: complicated acute illness or injury Viral syndrome: complicated acute illness or injury Amount and/or Complexity of Data Reviewed Labs: ordered. Decision-making details documented in ED Course. Radiology: ordered and independent interpretation performed. Decision-making details documented in ED Course. Risk Prescription drug management. Medications ondansetron (ZOFRAN-ODT) disintegrating tablet 4 mg (4 mg Oral Given 03/10/25311) ketorolac (TORADOL) injection 30 mg (30 mg Intramuscular Given 03/10/25311) droPERidol (INAPSINE) injection 1.25 mg (1.25 mg Intramuscular Given 03/10/25413) ED Current Prescriptions None All COVID-19 safety protocols followed during patient interaction. ED Clinical Impression: Final diagnoses: Viral syndrome (Primary) Acute nonintractable headache, unspecified headache type Condition at Discharge/Transfer from Department: Improved If a controlled substance was prescribed then a [facility] report was reviewed prior to the prescribing. [1] No Known Allergies [2] Past Medical History: Diagnosis Date Asthma Irritable bowel syndrome without diarrhea [3] Social History Socioeconomic History Marital status: Single Spouse name: None Number of children: None Years of education: None Highest education level: None Tobacco Use Smoking status: Never Smokeless tobacco: Never Vaping Use Vaping status: Never Used Substance and Sexual Activity Alcohol use: Never Drug use: Never Sexual activity: Never Comment: not sexuallly active yet [4] Family History Problem Relation Age of Onset Diabetes Father Diabetes Maternal Grandfather Diabetes Paternal Grandfather [5] Past Surgical History: Procedure Laterality Date TYMPANOSTOMY TUBE PLACEMENT Delfino Head MD 03/10/25 0431 documented in this encounter Plan of Treatment Upcoming Encounters Date Type Department Care Team (Late st Contact Info) Description 03/21/2025 9:15 AM EST Office Visit [facility] [address] [place] [address] Virgie Lopez PA-C [address] [place] [address] documented as of this encounter Goals Goal Patient Goal Type Associated Problems Recent Progress Patient-Stated? Author Blood Pressure < 140/90 Blood Pressure 149/77(2024 4:47 AM EST) Melisa Mendoza PA-C Maintain a healthy diet, exercise regularly and maintain an ideal body weight General No Makenna Henao documented as of this encounter Procedures Procedure Name Priority Date/Time Associated Diagnosis Comments CT HEAD WO CONTRAST STAT 03/10/2025 4 :08 AM EST [id number] A/B Routine 03/10/2025 2:4 7 AM EST documented in this encounter Results * CT HEAD WO CONTRAST (03/10/2025 4:08 AM EST) Anatomical Region Laterality Modality Head Computed Tomogra phy 03/10/2025 4:08 AM EST Impressions 03/10/2025 4:21 AM EST No acute intracranial abnormality. - Note: Radiology results need to be interpreted within a comprehensive clinical context. If you have questions about the radiology report, please contact the office of the ordering clinician. Narrative 03/10/2025 4:[address] HEAD WO CONTRAST 03/10/2025 4:08 AM CLINICAL HISTORY: -headache. COMPARISON: None. PROCEDURE COMMENTS: Routine noncontrast head CT with multiplanar reconstructions. Dose 1 : CT DLP Total : 810.69 mGycm DLP Spiral Max : 805.31 mGycm Maximum CTDI Vol : 48.28 mGy FINDINGS: Ventricular size and configuration normal. No evidence of acute stroke, mass, or hemorrhage. No evidence of fracture or extra-axial collection. Included paranasal sinuses, mastoids, and orbits unremarkable. Procedure Note Saji Jin MD - 03/10/2025 CT HEAD WO CONTRAST 03/10/2025 4:08 AM CLINICAL HISTORY: -headache. COMPARISON: None. PROCEDURE COMMENTS: Routine noncontrast head CT with multiplanar reconstructions. Dose 1 : CT DLP Total : 810.69 mGycm DLP Spiral Max : 805.31 mGycm Maximum CTDI Vol : 48.28 mGy FINDINGS: Ventricular size and configuration normal. No evidence of acute stroke,mass, or hemorrhage. No evidence of fracture or extra-axial collection. Included paranasal sinuses, mastoids, and orbits unremarkable. IMPRESSION: No acute intracranial abnormality. - Note: Radiology results need to be interpreted within a comprehensiveclinical context. If you have questions about the radiology report, please contactthe office of the ordering clinician. Delfino Head MD IMG CT ORDERABLES Final Resul t * [id number] A/B (03/10/2025 2:47 AM EST) CORONAVIRUS [id number] Not Detected Not Detected 03/10/2025 3:10 AM EST [facility] Influenza A DNA Not Detected Not Detected 03/10/2025 3:10 AM EST [facility] Influenza B DNA Not Detected Not Detected 03/10/2025 3:10 AM EST [facility] Swab BOTH ANTERIOR NARES / Unknown 03/10/2025 2:47 AM EST 03/10/2025 2:49 AM EST Delfino Head MD MICROBIOLOGY - GENERAL ORDERA BLES Final Result Performing Organization Address City/State/[facility] Co de Phone Number [facility] [address] [place] [address] documented in this encounter Visit Diagnoses Diagnosis Viral syndrome- Primary Unspecified viral infection, in conditions classified elsewhere and of unspecified site Acute nonintractable headache, unspecified headache type documented in this encounter Administered Medications Inactive Administered Medications - up to 1 most recent administrations Medication Order MAR Action Action Date Dose Rate Site droPERidol (INAPSINE) injection 1.25 mg 1.25 mg, Intramuscular, ONCE, 1 dose, On 03/10/25 at 0415 Given 03/10/2025 4:14 AM EST 1.25 mg Left Arm ketorolac (TORADOL) injection 30 mg 30 mg, Intramuscular, ONCE, 1 dose, On 03/10/25 at 0245, For IM Administration: Give undiluted, slowly and deeply into the muscle. Given 03/10/2025 3:12 AM EST 30 mg Right Arm ondansetron (ZOFRAN-ODT) disintegrating tablet 4 mg 4 mg, Oral, ONCE, 1 dose, On 03/10/25 at 0245, Dissolve in mouth Given 03/10/2025 3:12 AM EST 4 mg documented in this encounter Active and Recently Administered Medications Due to Daylight Saving Time, this section may contain times in both EDT and EST. Scheduled Medication Order 03/08/2025 03/09/2025 03/10/2025 droPERidol (INAPSINE) injection 1.25 mg (COMPLETED) 1.25 mg, Intramuscular, ONCE, 1 dose, On 03/10/25 at 0415 0414 (Given - Provid er: Justina Thayer RN) ketorolac (TORADOL) injection 30 mg (COMPLETED) 30 mg, Intramuscular, ONCE, 1 dose, On 03/10/25 at 0245, For IM Administration: Give undiluted, slowly and deeply into the muscle. 0312 (Given - Provid er: Justina Thayer RN - Comment: verifed with WEN CAMERON) ondansetron (ZOFRAN-ODT) disintegrating tablet 4 mg (COMPLETED) 4 mg, Oral, ONCE, 1 dose, On 03/10/25 at 0245, Dissolve in mouth 0312 (Given - Provid er: Justina Thayer RN) documented in this encounter Additional Health Concerns Infection Onset Date Last Indicated Resolved Time R/O COVID-19 03/10/2025 03/10/2025 03/10/2025 3:10 AM EST Assessment Noted Time PHQ-9 Depression Total Score: 11/08/19 8:52 AM EDT PHQ-2 Depression Total Score: 11/08/19 8:52 AM EDT documented as of this encounter Care Teams Retail Key Holder Relationship Specialty [place] [address] [place] [id number] PCP - General Family Medicine 08/08/17 documented as of this encounter
[2025-03-10 18:45] VITALS: BP 150/88; PULSE 98; RESP 18; TEMP 37.1; O2SAT 99; BMI 62.9
[2025-03-10 18:48] VITALS: BP 139/78; PULSE 84; RESP 18; TEMP 36.9; O2SAT 98
--- NOTE | 2025-03-10 19:12 | CT_ITS ---
PROCEDURE INFORMATION: Exam: CTA Head With Contrast, Venography Exam date and time: 03/10/2025 9:52 PM Age: 24 years old Clinical indication: Pain; Headache; Additional info: PEREZ, fever TECHNIQUE: Imaging protocol: Computed tomography angiography of the head with contrast. Exam focused on the veins. 3D rendering (Not supervised by radiologist): MIP and/or 3D reconstructed images were created by the technologist. Radiation optimization: All CT scans at this facility use at least one of these dose optimization techniques: automated exposure control; mA and/or kV adjustment per patient size (includes targeted exams where dose is matched to clinical indication); or iterative reconstruction. Contrast material: ISOVUE; Contrast volume: 80 ml; Contrast route: INTRAVENOUS (IV); COMPARISON: CT HEAD/BRAIN WO CON 03/10/2025 9:48 PM FINDINGS: Superior sagittal sinus: Patent. Straight sinus: Patent. Transverse sinuses: Patent. Sigmoid sinuses: Patent. Internal jugular veins: Limited visualized internal jugular veins are patent. Brain: There is an arachnoid granulation incidentally noted at the left sigmoid sinus on axial plane image series 5:74 Cerebral ventricles: No ventriculomegaly. Soft tissues: Unremarkable. IMPRESSION: No venous thrombosis.
--- NOTE | 2025-03-10 19:12 | CT_ITS ---
PROCEDURE INFORMATION: Exam: CT Head Without Contrast Exam date and time: 03/10/2025 9:48 PM Age: 24 years old Clinical indication: Pain; Headache TECHNIQUE: Imaging protocol: Computed tomography of the head without contrast. Radiation optimization: All CT scans at this facility use at least one of these dose optimization techniques: automated exposure control; mA and/or kV adjustment per patient size (includes targeted exams where dose is matched to clinical indication); or iterative reconstruction. 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 Greater than expected effacement of sulci throughout the entire cerebral hemisphere comfortable without obvious cause Cerebral ventricles: No hydrocephalus. Ventricles are normal in size Paranasal sinuses: Visualized sinuses are unremarkable. No fluid levels. Mastoid air cells: Visualized mastoid air cells are well aerated. Bones: Unremarkable. No acute fracture. Soft tissues: Unremarkable. IMPRESSION: 1. Sulcal effacement diffusely throughout the bilateral cerebral hemispheres. 2. No hydrocephalus. 3. 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 In combination with impressions 1 and 2, can not entirely exclude diffuse cerebral edema. Consider MRI for further characterization. THIS REPORT CONTAINS FINDINGS THAT MAY BE CRITICAL TO PATIENT CARE. The findings were verbally communicated via telephone conference with Diane Nelson at 9:31 PM EST on 03/10/2025. The findings were acknowledged and understood.
--- OUTSIDE RECORDS SUMMARY | 2025-03-10 19:12 | XMS_ITS | Encounter Summary ---
Author Organization [place] [address] Care Team Providers Care Clin Tech Name Role Phone Amber Ryan MD Primary Care Provider [phone] Reason for Visit * Reason Comments Medication Refill Encounter Details Date Type Department Care Team (Late st Contact Info) Description 02/27/2025 Refill [facility] [address] [place] [address] Melisa Hsu PA-C [address] [place] [address] Medication Refill Social History Tobacco Use Types Packs/Day Years [...] Refills Last Filled Start Date End Date FLUoxetine (PROZAC) 20 mg Oral CapsuleIndications :Mixed anxiety and depressive disorder Take 1 Capsule by mouth daily. 90 Capsule 1 02/28/2025 documented in this encounter Miscellaneous Notes * Telephone Encounter - Mary Roberson CPhT - 02/28/2025 2:09 PM EDT fluoxetine 10 mg - Refill request deferred to the office: Medication discontinued or inactive on the medication list documented in this encounter Plan of Treatment Upcoming Encounters Date Type Department Care Team (Late st Contact Info) Description 03/21/2025 9:15 AM EST [facility] [address] [address] Virgie Lopez PA-C [address] [place] [address] documented as of this encounter Goals Goal Patient Goal Type Associated Problems Recent Progress Patient-Stated? Author Blood Pressure < 140/90 Blood Pressure 149/77(2024 4:47 AM EST) Melisa Mendoza PA-C Maintain a healthy diet, exercise regularly and maintain an ideal body weight General No Makenna Henao documented as of this encounter Visit Diagnoses Diagnosis Mixed anxiety and depressive disorder Dysthymic disorder documented in this encounter Additional Health Concerns Assessment Noted Time PHQ-9 Depression Total Score: 11/08/19 25 8:52 AM EDT PHQ-2 Depression Total Score: 11/08/19 25 8:52 AM EDT documented as of this encounter Care Teams Clin Tech Relationship Specialty Start Date End Date Amber Ryan MD [address] [place] [address] PCP - General Family Medicine 08/08/17 documented as of this encounter
--- OUTSIDE RECORDS SUMMARY | 2025-03-10 19:12 | XMS_ITS | Encounter Summary ---
Author Organization [place] [address] Care Team Providers Care Manager Pulmonary Name Role Phone Amber Ryan MD Primary Care Provider [phone] Reason for Visit * Reason Comments Medication Refill Encounter Details Date Type Department Care Team (Late st Contact Info) Description 03/07/2025 Refill [facility] [address] [place] [address] Melisa Hsu PA-C [address] [place] [address] Medication Refill Social History Tobacco [...] Jumana Cardona LPN documented in this encounter Ordered Prescriptions Prescription Sig Dispense Quantity Refills Last Filled Start Date End Date busPIRone (BUSPAR) 10 mg Oral TabletIndications:M ixed anxiety and depressive disorder TAKE 1/2 TO 1 TABLET BY MOUTH TWICE DAILY NEEDED 30 Tablet 2 03/08/2025 documented in this encounter Plan of Treatment Upcoming Encounters Date Type Department Care Team (Late st Contact Info) Description 03/21/2025 9:15 AM EST Office Visit [facility] [address] [place] [address] Virgie Lopez PA-C [address] [place] [address] documented as of this encounter Goals Goal Patient Goal Type Associated Problems Recent Progress Patient-Stated? Author Blood Pressure < 140/90 Blood Pressure 149/77(2024 4:47 AM EST) Melisa Mendoza PA-C Maintain a healthy diet, exercise regularly and maintain an ideal body weight General Makenna Momin documented as of this encounter Visit Diagnoses Diagnosis Mixed anxiety and depressive disorder Dysthymic disorder documented in this encounter Discontinued Medications Medication Sig Discontinue Reason Start Date End Da te busPIRone (BUSPAR) 10 mg Oral TabletIndications:Mixed anxiety and depressive disorder Take 0.5-1 Tablets by mouth 2 times daily as needed. 11/07/2024 03/08/2025 documented as of this encounter Additional Health Concerns Assessment Noted Time PHQ-9 Depression Total Score: 1 11/08/19 8:52 AM EDT PHQ-2 Depression Total Score: 1 11/08/19 8:52 AM EDT documented as of this encounter Care Teams Manager Pulmonary Relationship Specialty Start Date End Date Amber Ryan MD [address] [place] [address] PCP - General Family Medicine 08/08/17 documented as of this encounter
--- NOTE | 2025-03-10 19:13 | ED_ITS ---
<Statement entered by Ty Hines MD - 03/10/25 22:35> I was consulted by the SAMUEL, and we discussed the complexity of the problems being addressed. I approve the treatment and management plan for this patient's care in the emergency department, thus performing a substantive portion of the medical decision making. Patient's carboxyhemoglobin is normal at 1.3 Ty Hines MD Discharge Plan Disposition Chief Complaint: PAIN Prescriptions Prescriptions: No Action buspirone [BuSpar] 5 mg Tablet 5 mg PO DAILY lisinopril 5 mg Tablet 5 mg PO DAILY fluoxetine [Prozac] 20 mg Capsule 20 mg PO DAILY Referrals Follow up/Referrals: Provider,Referral, [Primary Care Provider, Medical] - See instructions Print Language Print Language: Belarusian Discharge ED Provider: Ty Hines General Adult HPI General Chief complaint: PAIN Stated complaint: headache,eye pressure,dizzy , nausea Time Seen by Provider: 03/10/25 19:00 Mode of Arrival: Ambulatory Source of Information: Patient Description of Symptoms (Recalled from ER Triage Doc. by RN): headache started on and has progressively gotten worse. Light sensitive. Pt is is c/o n/v, dizziness. Pt was seen at [facility] [place] for the same this morning. History of Present Illness HPI narrative: Patient presents complaining of headache since . She reports the headache has gotten progressively worse. She did have a temperature of 102 yesterday evening around 7:30 PM. Around midnight her pain was worse described as pulsating, she had nausea and spinning sensation. She went to the [facility] and had a negative COVID and flu swab as well as CT brain. She denies any fever since then. She denies any URI symptoms. She denies any sick contacts. She denies any vomiting. Pain is described as frontal and pressure behind her eyes. Denies any significant headache history. complaint: Headache, fever Onset (ago): day(s) Radiation: non-radiation Severity: moderate Quality: other (pulsing) Consistency: constant Relieving factors: none Exacerbating factors: none Associated symptoms: fever/chills Treatments prior to arrival: none Related Data Home Medications ?Medication ?Instructions ?Recorded ?Confirmed buspirone 5 mg tablet 5 mg PO DAILY 03/10/2503/10 fluoxetine 20 mg capsule (Prozac) 20 mg PO DAILY 03/1003/10/25 lisinopril 5 mg tablet 5 mg PO DAILY 03/10/2503/10 Allergies Allergy/AdvReac Type Severity Reaction Status Date / Time No Known Allergies Allergy Verified 03/10/25 18:49 [facility] Disclaimer: The information contained in this section may have been updated after the patient was seen, as this information can be updated by other users. Social History Smoking Status: Never smoker alcohol intake: never current occupational status: employed Travel in the last 8 weeks?: None ROS Obtained: Yes Systems reviewed as appropriate & no additional complaints except as documented Physical Exam General General appearance: alert and in no apparent distress Head Head exam: atraumatic and normocephalic Eye Eye exam: Present normal appearance and EOMI ENT ENT exam: Present normal exam, normal oropharynx, mucous membranes moist and TM's normal bilaterally Neck Neck exam: Present full ROM; Absent meningismus Chest Chest inspection: Present symmetric chest wall rise Respiratory Respiratory exam: Present normal lung sounds bilaterally; Absent wheezes or stridor Cardiovascular Cardiovascular exam: Present regular rate and normal rhythm; Absent systolic murmur Extremities Exam Extremities exam: Present full ROM Neurological Exam Neurological exam: Present alert, oriented X3 and CN II-XII intact; Absent motor sensory deficit Psychiatric Psychiatric exam: Present normal affect and normal mood Skin Skin exam: Present warm, dry and intact Lymphatic Lymphatic Findings: other (no cervical adenopathy ) Medical Decision Making Medical Records Screening: Per USPSTF and CDC recommendations, given the prevalence of disease in our region, it is our hospital?s policy to screen for HIV and viral Hepatitis for all patients aged 18 and over and those with ongoing risk factors. Joon Inquiry Pt receiving controlled substance: No Vital Signs: 03/10/25 18:45 03/10/25 18:48 Temperature 98.7 F 98.4 F Temperature Source Oral Oral Pulse Rate 84 Pulse Rate [Right] 98 H Respiratory Rate 18 18 Blood Pressure 139/78 Blood Pressure [Right Arm] 150/88 H Blood Pressure Mean [Right Arm] 108 Blood Pressure Source [Right Arm] Automatic Cuff Blood Pressure Position [Right Arm] Sitting 02 Sat by Pulse Oximetry 99 98 Oxygen Delivery Method Room Air Room Air Lab Data Lab Results 03/10/25 19:19: WBC 8.3, RBC 4.83, Hgb 13.7, Hct 41.4, MCV 85.7, MCH 28.4, MCHC 33.1, RDW 13.2, Plt Count 387, MPV 8.9, Neut % (Auto) 59.0, Lymph % (Auto) 32.1, [place] % (Auto) 7.6, Eos % (Auto) 0.7, Baso % (Auto) 0.4, Neut # (Auto) 4.9, Lymph # (Auto) 2.7, [place] # (Auto) 0.6, Eos # (Auto) 0.1, Baso # (Auto) 0.0, Sodium 135 L, Potassium 4.1, Chloride 102, Carbon Dioxide 27, Anion Gap 10.1, BUN 13, Creatinine 0.70, Estimated Creat Clear 117, Estimated GFR 104, Est GFR ( Amer) 125, Glucose 122 H, Lactate 1.3, Calcium 9.1, Total Bilirubin 0.8, AST 30, ALT 33, Alkaline Phosphatase 57, Total Protein 7.7, Albumin 3.7, Globulin 4.0 H, Albumin/Globulin Ratio 0.9 L, Serum HCG, Qual Negative, Salicylates < 1.0 L, Plasma/Serum Alcohol < 10 03/10/25 20:54: Urine Opiates Screen Positive H, Urine Methadone Screen Negative, Ur Barbituates Screen Negative, Ur Phencyclidine Scrn Negative, Ur Amphetamines Screen Negative, U Benzodiazepines Scrn Negative, Urine Cocaine Screen Negative, U Marijuana (THC) Screen Negative 03/10/25 19:19 03/10/25 19:19 Orders (Tests/Meds): ED MEDICATIONS Generic Name Dose Route Start Last Admin Trade Name Freq PRN Reason Stop Dose Admin Sodium Chloride 10 ml 03/10/25 19:08 Sodium Chloride 0.9% 10ml Flush Syringe IV 04/09/25 19:07 NEEDED PRN Maintain IV Site Sodium Chloride 10 ml 03/10/25 20:48 03/10/25 20:49 Sodium Chloride 0.9% 10ml Syr (Rad Only) IV 04/09/25 20:47 10 ml NEEDED PRN Administration Maintain IV Site Discontinued Medications Generic Name Dose Route Start Last Admin Trade Name Freq PRN Reason Stop Dose Admin Acetaminophen 1,000 mg 03/10/25 19:08 03/10/25 19:27 Acetaminophen 1,000mg/100ml Vial IV 03/10/25 19:09 1,000 mg ONCE ONE Administration Sodium Chloride 1,000 mls @ 999 mls/hr 03/10/25 19:08 03/10/25 19:28 Sod Chlor 0.9% 1000ml Bag IV 03/10/25 20:08 999 mls/hr .Q1H1M ONE Administration Iopamidol 80 ml 03/10/25 20:48 03/10/25 20:49 Iopamidol-370 (76%);100ml Bottle IV 03/10/25 20:49 80 ml ONCE ONE Administration Sodium Chloride 40 ml 03/10/25 20:48 03/10/25 20:49 0.9 % Sodium Chloride 50 Ml Vial IV 03/10/25 20:49 40 ml ONCE ONE Administration ORDERS Category Date Time Status CT Venogram head Stat Cat Scan 03/10/25 19:[address] head/brain wo con Stat Cat Scan 03/10/25 19:12 Completed CBC w/Auto Diff [Complete Blood Count Auto Diff] Stat Lab 03/10/25 19:19 Completed CMP [Comprehensive Metabolic Panel] Stat Lab 03/10/25 19:19 Completed Drug Screen,Urine Stat Lab 03/10/25 20:54 Completed Ethyl Alcohol Stat Lab 03/10/25 19:19 Completed Full Resp Panel w/COVID ([facility]) Routine Lab 03/10/25 19:35 Received Lactic Acid Stat Lab 03/10/25 19:19 Completed Salicylate Stat Lab 03/10/25 19:19 Completed Serum [HCG Qualitative, Serum] Stat Lab 03/10/25 19:19 Completed Strep Scrn Group A (Rapid) Stat Lab 03/10/25 19:08 Ordered Carboxyhemoglobin Stat RT 03/10/25 21:35 Ordered Medical Decision Narrative: In summary patient is a 24-year-old who presents the emergency department for evaluation of headache, fever. Patient is hemodynamically upon arrival, afebrile. Unremarkable physical exam. Differential diagnosis includes viral illness, strep, venous sinus thrombosis. Patient is very well-appearing, no meningeal signs, I do not feel this is meningitis. Initial workup will be conducted with hematologic labs, viral swab, strep swab. Initial inventions include IV fluid bolus, IV Tylenol. Initial workup reviewed by me hematologic labs unremarkable. CT brain concerning for cerebral edema. CT venogram negative for venous thrombosis. I did discuss with neurology Dr. Fabiola castro. Given that patient's headache has improved with treatment she advised outpatient follow-up in clinic for MRI. Upon repeat evaluation patient has had significant improvement in headache. Given this patient is appropriate for discharge home at this time with return precautions and follow-up instructions. Critical Care Critical Care Time Critical Care Time: No
--- OUTSIDE RECORDS SUMMARY | 2025-03-10 19:13 | XMS_ITS ---
Author Organization Unknown ENCOUNTERS Encounter Performer Location Date Diagnosis Diagnosis Status Pre Admit [facility] [address] [place] [address] [id number] Emergency [facility] [address] [place] [address] [id number] *Note: Encounters from your own facility or health system may be excluded. Allergies, Adverse Reactions, Alerts Allergen Type Severity Identification Date Medications Name Date Quantity Days Supplied GPI Number
--- OUTSIDE RECORDS SUMMARY | 2025-03-10 19:13 | XMS_ITS | Encounter Summary ---
Author Organization [place] [address] Care Team Providers Care Chaser Apprentice Name Role Phone Amber Ryan MD Primary Care Provider [phone] Reason for Visit * Reason Comments Medication Refill Encounter Details Date Type Department Care Team (Late st Contact Info) Description 01/17/2025 Refill [facility] [address] [place] [address] Melisa Hsu PA-C [address] [place] [address] Medication Refill Social History Tobacco [...] Assessment Author No 02/08/2022 10:58 AM EDT Jumnaa Whitlock LPN * Does this person have [...] Refills Last Filled Start Date End Date lisinopriL (PRINIVIL;ZESTRIL) 5 mg Oral TabletIndications:E ssential hypertension TAKE 1 TABLET BY MOUTH DAILY 90 Tablet 1 01/17/2025 documented in this encounter Miscellaneous Notes * Telephone Encounter - Bonnie Espinal CPhT - 01/17/2025 12:58 PM EDT lisinopriL (PRINIVIL;ZESTRIL) 5 mg Oral Tablet Future Visit: none Last Assessed Visit: none Follow-Up: none Appointment protocol failed AND this patient requires the following labs/vitals. Routing to the office. Abnormal serum potassium OR potassium not on file within 6 months and Serum creatinine (6 months) documented in this encounter Plan of Treatment Upcoming Encounters Date Type Department Care Team (Late st Contact Info) Description 03/21/2025 9:15 AM EST Office Visit [facility] [address] [place] [address] Virgie Lopez PA-C [address] [place] [address] documented as of this encounter Goals Goal Patient Goal Type Associated Problems Recent Progress Patient-Stated? Author Blood Pressure < 140/90 Blood Pressure 149/77(2024 4:47 AM EST) Melisa Mendoza PA-C Maintain a healthy diet, exercise regularly and maintain an ideal body weight General Makenna Momin documented as of this encounter Visit Diagnoses Diagnosis Essential hypertension Unspecified essential hypertension documented in this encounter Discontinued Medications Medication Sig Discontinue Reason Start Date End Da te lisinopriL (PRINIVIL;ZESTRIL) 5 mg Oral TabletIndications:Essenti al hypertension TAKE 1 TABLET BY MOUTH DAILY 10/15/2024 01/17/2025 documented as of this encounter Additional Health Concerns Assessment Noted Time PHQ-9 Depression Total Score: 1 11/08/19 25 8:52 AM EDT PHQ-2 Depression Total Score: 1 11/08/19 25 8:52 AM EDT documented as of this encounter Care Teams Chaser Apprentice Relationship Specialty Start Date End Date Amber Ryan MD [address] [place] [address] PCP - General Family Medicine 08/08/17 documented as of this encounter
--- OUTSIDE RECORDS SUMMARY | 2025-03-10 19:13 | XMS_ITS | Clinical Summary ---
Author Organization [facility] Address [address] [place] [address] Phone Care Team Providers Care Pairer Substandard Name Role Phone Amber Ryan MD Primary Care Provider [phone] Allergies No known active allergies Medications levonorgestrel 20 mcg/24 hours (8 yrs) 52 mg IU IUD 1 Each by Intrauterine route once. 02/27/20 22 Active nabumetone (RELAFEN) 750 mg Oral TabletIndicatio ns:Sciatica, right side,Spondyloli sthesis of lumbosacral region,Lumbar sprain, initial encounter,Radic ulopathy of lumbar region,Sacroili itis,Lumbar pain Take 1 Tablet by mouth 2 times daily. 60 Tablet 1 10/06/19 24 Active cetirizine (ZYRTEC) 5 mg Oral Tablet Active tiZANidine (ZANAFLEX) 2 mg Oral Tablet Active lisinopriL (PRINIVIL;ZESTR IL) 5 mg Oral TabletIndicatio ns:Essential hypertension TAKE 1 TABLET BY MOUTH DAILY 90 Tablet 1 01/18/20 25 Active predniSONE (DELTASONE) 10 mg Oral TabletIndicatio ns:Strain of right trapezius muscle, subsequent encounter,Peris capular pain,Strain of neck muscle, initial encounter Take 40mg x 3 days, 20mg x 3 days, 10mg x 3 days. 21 Tablet 01/29/20 25 Active FLUoxetine (PROZAC) 20 mg Oral CapsuleIndicati ons:Mixed anxiety and depressive disorder TAKE 1 CAPSULE BY MOUTH DAILY 100 Capsule 02/14/20 25 Active FLUoxetine (PROZAC) 20 mg Oral CapsuleIndicati ons:Mixed anxiety and depressive disorder Take 1 Capsule by mouth daily. 90 Capsule 1 02/29/20 25 Active busPIRone (BUSPAR) 10 mg Oral TabletIndicatio ns:Mixed anxiety and depressive disorder TAKE 1/2 TO 1 TABLET BY MOUTH TWICE DAILY NEEDED 30 Tablet 2 03/08/20 25 Active busPIRone (BUSPAR) 10 mg Oral TabletIndicatio ns:Mixed anxiety and depressive disorder Take 0.5-1 Tablets by mouth 2 times daily as needed. 30 Tablet 1 11/08/19 25 2024 Discontinued FLUoxetine (PROZAC) 20 mg Oral CapsuleIndicati ons:Mixed anxiety and depressive disorder Take 1 Capsule by mouth daily. 30 Capsule 2 12/05/19 25 2024 Discontinued Active Problems Problem Noted Date Diagnosed Date Strain of trapezius muscle, right, subsequent en counter 02/13/2025 Periscapular pain 02/13/2025 Strain of neck muscle 02/13/2025 IUD (intrauterine device) in place 01/04/2024 Overview (01/04/2024): 02/27 Essential hypertension 01/04/2024 Overview (01/04/2024): On bandar Chronic right-sided lumbar radiculopathy 024 Prediabetes 03/22/2022 Abnormal uterine bleeding (AUB) 01/28/2022 Overview (01/04/2024): Controlled with IUD, 2021 Class 3 severe obesity with body mass index (BMI) of 45.0 to 49.9 in adult 10/19/2021 PCOS (polycystic ovarian syndrome) 10/19/2021 Asthma 05/22/2012 Resolved Problems Problem Noted Date Diagnosed Date Resolved Date Dizziness 05/31/2022 01/04/2024 IUD check up 03/22/2022 01/04/2024 Overview (03/22/2022): 02/27 Menorrhagia with irregular cycle 03/22/2022 01/04/2024 Dysmenorrhea 01/28/2022 01/04/2024 Secondary amenorrhea 10/19/2021 024 Encounters Date Type Department Care Team Description 03/10/2025 2:02 AM EST - 03/10/2025 4:56 AM EST Emergency . [facility] [address] [place] [address] Delfino Head MD Viral syndrome (Primary Dx); Acute nonintractable headache, unspecified headache type Discharge Disposition: Home or Self Care 03/07/2025 Refill [facility] [address] [place] [address] Melisa Hsu PA-C Medication Refill 02/27/2025 Refill [facility] [address] [place] [address] Melisa Hsu PA-C Medication Refill 02/20/2025 7:30 AM EDT Office Visit [facility] [address] [employer] [facility] [address] [place] [address] Tarah Morales, PT Strain of trapezius muscle, right, subsequent encounter (Primary Dx); Periscapular pain; Strain of neck muscle, initial encounter 02/18/2025 10:45 AM EDT Office Visit [facility] [address] [employer] [address] [address] Virgie Lopez PA-C Strain of right trapezius muscle, subsequent encounter (Primary Dx); Periscapular pain; Strain of neck muscle, initial encounter 02/13/2025 9:15 AM EDT Office Visit [facility] [address] [employer] [address] [address] Socrates Jimenez MD Carpal tunnel syndrome of right wrist (Primary Dx); Carpal tunnel syndrome of left wrist 02/13/2025 8:00 AM EDT Office Visit [facility] [address] [facility] [address] [place] [address] Tarah Morales, PT Strain of trapezius muscle, right, subsequent encounter (Primary Dx); Periscapular pain; Strain of neck muscle, initial encounter 02/13/2025 Plan of Care Documentation [facility] [address] [facility] [address] [place] [address] 02/12/2025 Refill [facility] [address] [place] [address] Melisa Hsu PA-C Medication Refill; Central Patient Navigator Outreach (med refill 100) 01/28/2025 10:00 AM EDT Office Visit [facility] [address] [facility] [address] [place] [address] Bobby Leigh DO Strain of right trapezius muscle, subsequent encounter (Primary Dx); Periscapular pain; Strain of neck muscle, initial encounter 01/24/2025 8:00 PM [place] [address] Melony Ramirez PA-C Acute pain of right shoulder 01/24/2025 7:45 PM EDT Office Visit [facility] [place] [address] Melony Ramirez PA-C Acute pain of right shoulder (Primary Dx); Strain of right shoulder, initial encounter; Strain of right trapezius muscle, subsequent encounter 01/17/2025 Refill [facility] [address] [place] [address] Melisa Hsu PA-C Medication Refill 01/02/2025 9:15 AM EDT Office Visit [address] [address] Darshan Rainey DO Numbness and tingling in both hands (Primary Dx); Right carpal tunnel syndrome; Left carpal tunnel syndrome 12/19/2024 7:45 AM EDT Office Visit [facility] [address] [place] [address] Socrates Jimenez MD Right carpal tunnel syndrome (Primary Dx); Left carpal tunnel syndrome from Last 3 Months Immunizations Immunization Administration Dates Next Due DTaP 12/14/2005, 3,02/07/2002,12/07,2001 DTaP, Unspecified Formulation 12/14/2005 ,02/19/2003,02/07/2002,12/07,2001 HPV 9 Valent 2018,02/13/2018,11/23/2017 Hepatitis A, Ped/Adol, 2 Dose 2018, 018 Hepatitis B, Unspecified Formulation 02/07/2002, 2001,2001 HiB, Unspecified Formulation 11/21/2002, 02/26/2002,2001,10/12 IPV 12/14/2005, 3,02/07/2002,12/07,2001 Influenza Vaccine Quadrivalent PF 03/22/2022 Influenza, Split (Incl. Nichole fied Surface Antigen) 03/13/2024,02/16/2023 MMR 12/14/2005,11/21/2002 Meningococcal Conjugate 11/16/2017,11/20/2012 Meningococcal, Unspecified Formulation 3 Polio, Unspecified Formulation 6,02/19/2003,02/07/2002,12/07,2001 Tdap 12/14/2022,11/20/2012 Varicella 11/20/2012,12/01/2006 Surgical History Surgery Date Site/Laterality Comments TYMPANOSTOMY TUBE PLACEMENT Medical History Medical History Date Comments Asthma Irritable bowel syndrome without diarrhea Family History Medical History Relation Name Comments Diabetes Father Diabetes Maternal Grandfather Diabetes Paternal Grandfather Relation Name Status Comments Father Alive Maternal Grandfather Mother Alive Paternal Grandfather Social History Tobacco Use Types Packs/Day Years Used Date Smoking Tobacco: Never Smokeless Tobacco: Never Tobacco Cessation:Counseling Given: Not Answered Alcohol Use Standard Drinks/Week Comments Never 0 [...] on file Sexual Orientation Not on file Obstetrics History Para Term AB IAB SAB Ectopic Multiple Livin g Live Births 0 0 0 0 0 0 0 0 0 0 0 Last Filed Vital Signs Vital Sign Reading Time Taken Comments Blood Pressure 149/77 03/10/2025 4:47 AM EST Pulse 105 03/10/2025 1:51 AM EDT Temperature 37.1 C (98.7 F) 03/10/2025 1:51 AM EDT Respiratory Rate 16 03/10/2025 1:51 AM EDT Oxygen Saturation 94% 03/10/2025 4:30 AM EST Inhaled Oxygen Concentration - - Weight 181.6 kg (400 lb 6.4 oz) 11/07/2024 8:52 AM EDT Height 167.6 cm (5' 6 ) 11/07/2024 8:52 AM EDT Body Mass Index 64.63 11/07/2024 8:52 AM EDT Plan of Treatment Upcoming Encounters Date Type Department Care Team (Late st Contact Info) Description 03/21/2025 9:15 AM EST Office Visit [facility] [address] [place] [address] Virgie Lopez PA-C [address] [place] [address] Health Maintenance Due Date Last Done Comments Meningococcal B Vaccine (1 o f 2 - Standard) 2017 Pneumococcal Vaccine 0-49 (1 of 2 - PCV) 2020 Cervical Cancer Screening 2022 Pap Smear 2022 Annual Wellness Exam 01/03/2025 01/04/2024, 10/24/19 20 COVID-19 Vaccine (3 - 2024-2 6 season) 2025 02/04/2021, 01/07/2021 Influenza Vaccine (#1) 2025 , 02/16/2023, 03/22/2022, Additional history exists DTaP/TDaP/Td (8 - Td or Tdap) 12/14/2032, 11/20/2012, 12/14/2005, Additional history exists Hepatitis B Vaccine Completed 02/07/2002, 2001, 2001 HPV Completed 2018, 12/2017, 11/23/2017 Goals Goal Patient Goal Type Associated Problems Recent Progress Patient-Stated? Author Blood Pressure < 140/90 Blood Pressure 149/77(2024 4:47 AM EST) No Melisa Hsu PA-C Maintain a healthy diet, exercise regularly and maintain an ideal body weight General No Makenna Henao Procedures Procedure Name Priority Date/Time Associated Diagnosis Comments CT HEAD WO CONTRAST STAT 03/10/2025 4 :08 AM EST [id number] A/B Routine 03/10/2025 2:4 7 AM EST XR SHOULDER RIGHT 3 VIEWS Routine 01/24/2025 8:02 PM EDT Acute pain of right shoulder CHG US GUIDANCE NEEDLE PLACEMENT IMG S&I Routine 01/02/2025 9:15 AM EDT Right carpal tunnel syndrome Left carpal tunnel syndrome MS INJECTION THERAPEUTIC CARPAL TUNNEL Routine 01/02/2025 9:15 AM EDT Right carpal tunnel syndrome Left carpal tunnel syndrome from Last 3 Months Results * CT HEAD WO CONTRAST (03/10/2025 [...] of the ordering clinician. Delfino Head MD [facility] [place] ORDER[place]LES Final Resul t * [id number] A/B (03/10/2025 2:47 AM EST) CORONAVIRUS [id number] Not Detected Not Detected 03/10/2025 3:10 AM EST [facility] Influenza A DNA Not Detected Not Detected 03/10/2025 3:[address] [facility] [facility] Influenza B DNA Not Detected Not Detected 03/10/2025 3:10 AM EST [facility] Swab BOTH ANTERIOR NARES / Unknown 03/10/2025 2:47 AM EST 03/10/2025 2:49 AM EST us Delfino Head MD MICROBIOLOGY - GENERAL ORDERA BLES Final Result Performing Organization Address [facility]/ZIP Co de Phone Number [facility] [address] [place] [address] [place] [address] * XR SHOULDER RIGHT 3 VIEWS (01/24/2025 8:02 PM EDT) Narrative Genericuser, Audit - 01/24/2025 8:02 PM EDT Please see physician's note from office encounter for x-ray imaging result us Melony Ramirez PA-C IMG DIAGNOSTIC IMAGING OR DERABLES Final Result * MS INJECTION THERAPEUTIC CARPAL TUNNEL, CHG US GUIDANCE NEEDLE PLACEMENT IMG S&I (01/02/2025 9:15 AM EDT) Narrative [facility] - 01/02/2025 9:15 AM EDT Darshan Rainey DO 01/02/2025 9:58 AM Ultrasound-guided bilateral carpal tunnel corticosteroid injection (2 injections) Date/Time: 01/02/2025 9:15 AM Consent given by: patient Site marked: site marked Timeout: Immediately prior to procedure a time out was called to verify the correct patient, procedure, equipment, applications support lead and site/side marked as required Supporting Documentation Indications: diagnostic and therapeutic Procedure Details Condition: carpal tunnel syndrome Carpal tunnel: Bilateral carpal tunnel, 2 injections. Needle size: 25 G Approach: ulnar Medications administered: 1 mL lidocaine 1% 10 mg/mL (1 %); 6 mg betamethasone acet-betamethasone sodium phos 6 mg/mL Patient tolerance: patient tolerated the procedure well with no immediate complications Injection Type: Carpal TunnelGuidance: ultrasound us Darshan Rainey DO PROCEDURE/MINOR SURGICAL ORDE RABBANDAR Edited Result - Final Performing Organization Address [facility]/ZIP Co de Phone Number [facility] from Last 3 Months Insurance ANTHEM PPO ANTHEM PPO ANTHEM PPO * Guarantor: SURESH BOSTON Type Relation to Patient Date of Phone Billing Address [facility] [employer] [id number] [place] [address] Care Teams Pairer Substandard Relationship Specialty Start Date End Date Amber Ryan MD [address] [place] [address] PCP - General Family Medicine 08/08/17
--- OUTSIDE RECORDS SUMMARY | 2025-03-10 19:13 | XMS_ITS | Encounter Summary ---
Author Organization [place] [address] Care Team Providers Care Sales Representative Aircraft Name Role Phone Amber Ryan MD Primary Care Provider [phone] Reason for Visit * Reason Onset Date Comments Medication Refill Central Patient Navigator Outreach 02/12/2025 med refill 100 Encounter Details Date Type Department Care Team (Late st Contact Info) Description 02/12/2025 Refill [facility] [address] [place] [address] Melisa Hsu PA-C [address] [place] [address] Medication Refill; Central Patient Navigator Outreach (med refill 100) Social History Tobacco Use Types Packs/Day Years [...] Author No 02/08/2022 10:58 AM EDT Jumana Whitolck LPN * Is the person blind or [...] Oral CapsuleIndications :Mixed anxiety and depressive disorder TAKE 1 CAPSULE BY MOUTH DAILY 100 Capsule 02/13/2025 documented in this encounter Miscellaneous Notes * Telephone Encounter - Johana Vu - 02/14/2025 9:13 AM EDT Patient Outreach: Medication refill appointment, christi count: Med Refill 100 Primary Care Attempt Count: 1st Care Gaps 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 Call back number: [phone] * Telephone Encounter - Kenzie Danielson CPhT - 02/13/2025 4:27 PM EDT FLUoxetine Future Visit: None Last Assessed Visit: 11/07/2024 Follow-Up: 05/10/2025 All protocols passed. Refills approved and sent to requesting pharmacy. Routed to [facility] if an appointment is needed. documented in this encounter Plan of Treatment Upcoming Encounters Date Type Department Care Team (Late st Contact Info) Description 03/21/2025 9:15 AM EST Office Visit [facility] [address] [address] Virgie Lopez PA-C [address] [place] [address] documented as of this encounter [...] Discontinue Reason Start Date End Da te FLUoxetine (PROZAC) 20 mg Oral CapsuleIndications:Mixed anxiety and depressive disorder Take 1 Capsule by mouth daily. 12/04/2024 02/13/2025 documented as of this encounter Additional Health Concerns Assessment Noted Time PHQ-9 Depression Total Score: 1 11/08/19 8:52 AM EDT PHQ-2 Depression Total Score: 11/08/19 8:52 AM EDT documented as of this encounter Care Teams Sales Representative Aircraft Relationship Specialty Start Date End Date Amber Ryan MD [address] [place] [address] PCP - General Family Medicine 08/08/17 documented as of this encounter
--- OUTSIDE RECORDS SUMMARY | 2025-03-10 19:13 | XMS_ITS | Encounter Summary ---
Author Organization [facility] Address [address] [place] [address] Care Team Providers Care Boilers And Pressure Vessels Inspector Name Role Phone Amber Ryan MD Primary Care Provider [phone] Encounter Details Date Type Department Care Team (Late st Contact Info) Description 02/13/2025 Plan of Care Documentation [facility] [address] [facility] [address] [place] [address] Social History Tobacco Use Types Packs/Day Years [...] Jumana Whitlock LPN documented in this encounter Miscellaneous Notes * Therapist Plan of Care - Tarha Morales, PT - 02/13/2025 9:43 AM EDT Images from the original note were not included. Please sign to acknowledge agreement with this updated plan of care. Physical Therapy Evaluation 02/13/2025 Ravi Moreno Wilmer : 2000 Referring Provider: Bobby Leigh DO Next MD visit: 02/18/25 Encounter Diagnoses Name Primary? Strain of trapezius muscle, right, subsequent encounter Yes Periscapular pain Strain of neck muscle, initial encounter Surgery Date: NA Onset date: 01/24/25 Contraindications/Precautions: universal Visit: 05/09 Time In: 8:00AM Time Out: 8:48AM Subjective: Munayosi Guillen is a 24 y.o. female referred [...] reviewed with the patient. 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 Signature: Tarah Morales, PT Date: 02/13/2025 [place] License: [id number] documented in this encounter Plan of Treatment Upcoming Encounters Date Type Department Care Team (Late st Contact Info) Description 03/21/2025 9:15 AM EST Office Visit [facility]arda MEJIA [address] [place] [address] Virgie Lopez PA-C [address] [place] [address] documented as of this encounter Goals Goal Patient Goal Type Associated Problems Recent Progress Patient-Stated? Author Blood Pressure < 140/90 Blood Pressure 149/77(2024 4:47 AM EST) Melisa Mendoza PA-C Maintain a healthy diet, exercise regularly and maintain an ideal body weight General Makenna Momin documented as of this encounter Visit Diagnoses Not on filedocumented in this encounter Additional Health Concerns Assessment Noted Time PHQ-9 Depression Total Score: 1 11/08/19 25 8:52 AM EDT PHQ-2 Depression Total Score: 1 11/08/19 25 8:52 AM EDT documented as of this encounter Care Teams Boilers And Pressure Vessels Inspector Relationship Specialty Start Date End Date Amber Ryan MD [address] [place] [address] PCP - General Family Medicine 08/08/17 documented as of this encounter
[2025-03-10] MEDS: ACETAMINOPHEN 1,000MG/100ML VIAL 1000 MG IV (19:27)
[2025-03-10] MEDS: 0.9 % SODIUM CHLORIDE 1000ML 1,000 ML 999 ML IV (19:28)
[2025-03-10 19:30] LABS: Hematocrit 41.4 % (37.0-47.0); Hemoglobin 13.7 g/dL (12.2-16.2); Immature Granulocytes % 0.2 %; Mean Corpuscular HGB Conc 33.1 g/dL (31.8-35.4); Mean Corpuscular Hemoglobin 28.4 pg (27.0-31.2); Mean Corpuscular Volume 85.7 fl (81-99); Nucleated Red Blood Cells % 0 %; Platelet Count 387 K/mm3 (142-424); Red Blood Count 4.83 M/mm3 (4.20-5.40); Red Cell Distribution Width-SD 41.6 fL; White Blood Count 8.3 K/mm3 (4.8-10.8)
[2025-03-10 19:38] LABS: Adenovirus,PCR Not Detected (NotDetected); Chlamydophila Pneumoniae, PCR Not Detected (NotDetected); Coronavirus 19, PCR Not Detected (NotDetected); Coronovirus HKU1,PCR Not Detected (NotDetected); Influenza A, PCR Not Detected (NotDetected); Influenza AH1, 2009 Not Detected (NotDetected); Influenza AH1, PCR Not Detected (NotDetected); Influenza AH3,PCR Not Detected (NotDetected); Influenza B, PCR Not Detected (NotDetected); Mycoplasma Pneumoniae, PCR Not Detected (NotDetected); Parainfluenza 1, PCR Not Detected (NotDetected); Parainfluenza 2, PCR Not Detected (NotDetected); Parainfluenza 3, PCR Not Detected (NotDetected); Parainfluenza 4, PCR Not Detected (NotDetected)
[2025-03-10 19:42] LABS: Alanine Aminotransferase 33 U/L (12-78); Albumin Level 3.7 g/dl (3.5-5.0); Albumin/Globulin Ratio 0.9 (1.1-1.8); Alkaline Phosphatase 57 U/L (38-126); Anion Gap 10.1 mEq/L (5-15); Aspartate Amino Transferase 30 U/L (14-36); Bilirubin,Total 0.8 mg/dl (0.2-1.3); Blood Urea Nitrogen 13 mg/dl (7-17); Calcium 9.1 mg/dl (8.4-10.2); Carbon Dioxide 27 mmol/L (22.0-30.0); Chloride 102 mmol/L (98-107); Creatinine Clearance Estimated 117 mL/min (50-200); Creatinine,Serum 0.70 mg/dl (0.52-1.04); Estimated Glomerular Filt Rate 104 ml/min (>60); GFR (African American) 125 ML/MIN (>60); Globulin 4.0 g/dL (1.3-3.2); Glucose 122 mg/dl (74-100); Potassium 4.1 mmoL/L (3.5-5.1); Sodium 135 mmol/L (136-145); Total Protein,Serum 7.7 g/dl (6.3-8.2)
[2025-03-10 20:35] LABS: HCG Qualitative, Serum Negative (Negative)
[2025-03-10] MEDS: 0.9 % SODIUM CHLORIDE 50 ML VIAL 40 ML IV (20:49)
[2025-03-10] MEDS: IOPAMIDOL-370 (76%);100ML BOTTLE 80 ML IV (20:49)
[2025-03-10] MEDS: SODIUM CHLORIDE 0.9% 10ML SYR (RAD ONLY) 10 ML IV (20:49)
--- NOTE | 2025-03-10 21:49 | PC.NURSE ---
Spoke with , Diane Nelson speaking with [place] physician at this time.
[2025-03-10 22:03] LABS: Salicylate < 1.0 mg/dL (2.0-20.0)
[2025-03-10 22:06] LABS: Barbiturates Screen,Urine Negative ng/ml (<200)
[2025-03-10 22:07] LABS: Amphetamine/Metha Screen,Urine Negative ng/ml (<1000); Benzodiazepines Screen,Urine Negative ng/ml (<200)
[2025-03-10 22:09] LABS: Methadone Screen,Urine Negative ng/ml (<300)
[2025-03-10 22:10] LABS: Opiate Screen,Urine Positive ng/ml (<300); Phencyclidine Screen,Urine Negative ng/ml (<25)
[2025-03-10 22:31] LABS: Carboxyhemoglobin 1.3 (0.0-5.0)
[2025-03-10 22:34] VITALS: BP 128/78; PULSE 74; RESP 18; TEMP 36.6; O2SAT 98
== END 2025-03-10 22:43 | disposition home or self-care (01) ==
PROVIDERS: Physician Assistant; Emergency Provider Student in an Organized Health Care Education/Training Program
DX: R51.9 Headache, unspecified (principal); R11.0 Nausea; E66.01 Morbid (severe) obesity due to excess calories
CPT/HCPCS: 0223U; 70450; 70496; 80053; 80307; 80320; 80329; 82375; 83605; 84703; 85025; 96361; 96374; 99284; J0131; J7030; Q9967